=== PATIENT | male | born 1940 | race Caucasian/White ===

== ENCOUNTER 2018-01-18 21:45 | Inpatient (IN) | payer OTHER, MEDICARE ==
[~2018-01-18] VITALS: Ht 185.4 cm; Wt 84.9 kg
[~2018-01-18 21:45] MED LIST: AMIT50 PO; ASPI81CH PO; ATEN25 PO; DIGO.25; HYDACE5 PO; LANOXIN125 MCG PO; Norco 7.5-3251 EACH PO; TAMS.4ER PO; TERA2; WARF2.5 PO; XARELTO20 MG PO
[2018-01-18] MEDS ORDERED: OXYC5 PO (22:12)
[2018-01-18] MEDS ORDERED: ELIQUIS5 M1 PO (22:13)
[2018-01-18 22:46] LABS: BASOPHILS ABSOLUTE AUTO 0.02 K/mm3 (0.00-0.23); BASOPHILS PERCENT AUTO 0 % (0-2); EOSINOPHILS ABSOLUTE AUTO 0.04 K/mm3 (0.00-0.68); EOSINOPHILS PERCENT AUTO 0 % (0-6); Hematocrit 31.7 % (37.0-53.0); IMMATURE GRAN ABSOLUTE AUTO 0.06 K/mm3 (0.00-0.10); IMMATURE GRAN PERCENT AUTO 1 % (0-1); LYMPHOCYTES ABSOLUTE AUTO 0.68 K/mm3 (0.84-5.20); LYMPHOCYTES PERCENT AUTO 5 % (21-46); MONOCYTES ABSOLUTE AUTO 0.78 K/mm3 (0.16-1.47); MONOCYTES PERCENT AUTO 6 % (4-13); Mean Corpuscular HGB 29.3 pg (26.0-34.0); Mean Corpuscular HGB Conc 31.5 g/dL (31.5-36.5); Mean Corpuscular Volume 93 fL (80-100); NEUTROPHILS ABSOLUTE AUTO 11.32 K/mm3 (1.96-9.15); NEUTROPHILS PERCENT AUTO 88 % (41-73); Platelet Count 294 K/mm3 (150-400); RDW Coefficient Variation 17.7 % (11.7-14.2); RDW Standard Deviation 58.4 fL (35.1-46.3); Red Blood Cell Count 3.41 M/mm3 (4.30-5.90)
[2018-01-18 23:07] LABS: Troponin I <0.015 ng/mL (0.000-0.040)
[2018-01-18 23:08] LABS: Alanine Aminotransfer (ALT/SGP 15 U/L (12-78); Albumin, Blood 3.2 g/dL (3.4-5.0); Alk Phos 96 U/L (50-136); Anion Gap 10 mmol/L (6-16); Aspartate Aminotrans (AST/SGOT 15 U/L (12-37); Bilirubin, Total 1.4 mg/dL (0.1-1.0); Blood Urea Nitrogen 19 mg/dL (8-24); Bun/Creatinine Ratio 18.1 (12.0-20.0); CO2, Blood 23 mmol/L (21-32); Calcium, Blood 7.8 mg/dL (8.5-10.1); Chloride, Blood 107 mmol/L (98-108); Creatinine, Blood 1.05 mg/dL (0.60-1.20); Globulin, Blood 3.1 g/dL (2.2-4.0); Glomerular Filtration Rate >60 (60-); Glucose, Blood 133 mg/dL (70-99); Potassium, Blood 3.4 mmol/L (3.5-5.5); Sodium, Blood 140 mmol/L (136-145); Total Protein, Blood 6.3 g/dL (6.4-8.2)
[2018-01-18 23:17] LABS: Digoxin (Lanoxin) 0.94 ug/mL (0.80-2.00)
[2018-01-19 00:42] LABS: Source, Urine Clean Catch
[2018-01-19 00:45] LABS: Bilirubin, Urine Neg (Neg); Blood, Urine Neg (Neg); Glucose Qualitative, Urine Neg (Neg); Ketones, Urine Neg (Neg); Leukocyte Esterase, Urine Neg (Neg); Nitrite, Urine Neg (Neg); Protein, Urine Neg (Neg); Specific Gravity, Urine 1.015 (1.003-1.022); Urobilinogen, Urine NORM (Normal)
[2018-01-19 00:46] LABS: Appearance, Urine Clear (Clear); Color, Urine Yellow (P-Yellow)
[2018-01-19 06:54] LABS: Hematocrit 29.1 % (37.0-53.0); Hemoglobin 9.3 g/dL (13.5-17.5); Mean Corpuscular HGB 29.2 pg (26.0-34.0); Mean Corpuscular Volume 91 fL (80-100); Platelet Count 273 K/mm3 (150-400); RDW Coefficient Variation 17.5 % (11.7-14.2); RDW Standard Deviation 57.1 fL (35.1-46.3); Red Blood Cell Count 3.19 M/mm3 (4.30-5.90)
[2018-01-19 07:27] LABS: Alanine Aminotransfer (ALT/SGP 11 U/L (12-78); Albumin, Blood 2.8 g/dL (3.4-5.0); Alk Phos 86 U/L (50-136); Anion Gap 9 mmol/L (6-16); Aspartate Aminotrans (AST/SGOT 13 U/L (12-37); Bilirubin, Total 1.3 mg/dL (0.1-1.0); Blood Urea Nitrogen 17 mg/dL (8-24); CO2, Blood 25 mmol/L (21-32); Calcium, Blood 7.7 mg/dL (8.5-10.1); Chloride, Blood 107 mmol/L (98-108); Creatinine, Blood 1.06 mg/dL (0.60-1.20); Globulin, Blood 2.9 g/dL (2.2-4.0); Glomerular Filtration Rate >60 (60-); Glucose, Blood 102 mg/dL (70-99); Potassium, Blood 4.5 mmol/L (3.5-5.5); Sodium, Blood 141 mmol/L (136-145); Total Protein, Blood 5.7 g/dL (6.4-8.2); Troponin I 0.016 ng/mL (0.000-0.040)
[2018-01-19 10:44] LABS: Percent Saturation 12.7 % (20.0-50.0)
[2018-01-19 15:17] LABS: CPK Creatine Kinase 69 U/L (39-308); Troponin I <0.015 ng/mL (0.000-0.040)
[2018-01-20 06:32] LABS: BASOPHILS ABSOLUTE AUTO 0.02 K/mm3 (0.00-0.23); BASOPHILS PERCENT AUTO 0 % (0-2); EOSINOPHILS PERCENT AUTO 2 % (0-6); Hematocrit 31.6 % (37.0-53.0); IMMATURE GRAN ABSOLUTE AUTO 0.03 K/mm3 (0.00-0.10); IMMATURE GRAN PERCENT AUTO 0 % (0-1); LYMPHOCYTES ABSOLUTE AUTO 0.86 K/mm3 (0.84-5.20); LYMPHOCYTES PERCENT AUTO 13 % (21-46); MONOCYTES ABSOLUTE AUTO 0.56 K/mm3 (0.16-1.47); MONOCYTES PERCENT AUTO 8 % (4-13); Mean Corpuscular HGB 29.2 pg (26.0-34.0); Mean Corpuscular HGB Conc 31.6 g/dL (31.5-36.5); Mean Corpuscular Volume 92 fL (80-100); Mean Platelet Volume 8.8 fL (9.1-12.4); NEUTROPHILS ABSOLUTE AUTO 5.11 K/mm3 (1.96-9.15); NEUTROPHILS PERCENT AUTO 77 % (41-73); Platelet Count 238 K/mm3 (150-400); RDW Coefficient Variation 17.2 % (11.7-14.2); RDW Standard Deviation 57.1 fL (35.1-46.3); Red Blood Cell Count 3.42 M/mm3 (4.30-5.90); White Blood Cell Count 6.68 K/mm3 (4.00-11.30)
[2018-01-20 06:47] LABS: Bun/Creatinine Ratio 15.7 (12.0-20.0); Creatinine, Blood 1.27 mg/dL (0.60-1.20); Potassium, Blood 3.6 mmol/L (3.5-5.5)
[2018-01-20] MEDS ORDERED: CARV25 PO (14:12)
[2018-01-20] MEDS ORDERED: Micro-K10 MEQ PO (14:13)
[2018-01-20] MEDS ORDERED: Ferrous Sulfat325 M2 PO (14:15)
[2018-01-20] MEDS ORDERED: FURO40 PO (14:15)
== END 2018-01-20 15:41 | disposition home or self-care (01) | DRG 291 ==
LOC: ER 21:45 → PCU 01-19 00:44
PROVIDERS: Emergency Medicine; Internal Medicine
DX: I11.0 Hypertensive heart disease with heart failure (principal); J96.01 Acute respiratory failure with hypoxia; I50.31 Acute diastolic (congestive) heart failure; I48.2 Chronic atrial fibrillation; D50.9 Iron deficiency anemia, unspecified; I69.320 Aphasia following cerebral infarction; Z66 Do not resuscitate
CPT/HCPCS: 36415; 71046; 80048; 80053; 80162; 81003; 82550; 82728; 83540; 83550; 83880; 84484; 85025; 85027; 93005; 93010; 93306; 94762; 96374; 99285-25; J1940; J3480

== ENCOUNTER 2018-12-21 08:12 | Day surgery (SDC) | payer OTHER, MEDICARE ==
[~2018-12-21] VITALS: Ht 185.4 cm; Wt 75.7 kg
[~2018-12-21 08:12] MED LIST changes: +CARV25 PO; +ELIQUIS5 M1 PO; +FURO40 PO; +Ferrous Sulfat325 M2 PO; +Micro-K10 MEQ PO; +OXYC5 PO
[2018-12-21] MEDS ORDERED: ATECHL (08:56)
== END 2018-12-21 10:02 | disposition home or self-care (01) ==
LOC: ORSCSDS 08:12
PROVIDERS: Internal Medicine Gastroenterology
PROC: 0DBL8ZX Excision of Transverse Colon, Via Natural or Artificial Opening Endoscopic, Diagnostic (ICD-10-PCS; principal; 2018-12-21 09:30)
PROC: 0DBH8ZX Excision of Cecum, Via Natural or Artificial Opening Endoscopic, Diagnostic (ICD-10-PCS; principal; 2018-12-21 09:30)
DX: Z12.11 Encounter for screening for malignant neoplasm of colon (principal); Z86.010 Personal history of colon polyps; D12.0 Benign neoplasm of cecum; D12.3 Benign neoplasm of transverse colon; K64.8 Other hemorrhoids; I48.91 Unspecified atrial fibrillation; K21.0 Gastro-esophageal reflux disease with esophagitis; F43.10 Post-traumatic stress disorder, unspecified; Z79.01 Long term (current) use of anticoagulants; Z79.82 Long term (current) use of aspirin; Z79.899 Other long term (current) drug therapy
CPT/HCPCS: 88305; J2704; J7120

== ENCOUNTER 2022-09-26 09:01 | Day surgery (SDC) | payer OTHER ==
[~2022-09-26] VITALS: Ht 182.9 cm; Wt 82.0 kg
[~2022-09-26 09:01] MED LIST changes: +ATECHL; +ATEN50 PO; +ATOR20 PO
[2022-09-26] MEDS ORDERED: ELIQUIS5 M2 (09:38)
[2022-09-26] MEDS ORDERED: LISI5 (09:39)
[2022-09-26] MEDS ORDERED: AMIT50 (09:40)
--- NOTE | 2022-09-26 09:45 | NUR ---
09/26/22 0945 Antonia Oneil TETRACAINE TO RIGHT EYE AT 0938 PLEDGET TO RIGHT EYE ATE 0940 BY [facility].TMG
== END 2022-09-26 11:03 | disposition home or self-care (01) ==
LOC: ORSCSDS 09:01
PROVIDERS: Ophthalmology
PROC: 08RJ3JZ Replacement of Right Lens with Synthetic Substitute, Percutaneous Approach (ICD-10-PCS; principal; 2022-09-26 10:30)
DX: H25.13 Age-related nuclear cataract, bilateral (principal); I10 Essential (primary) hypertension; I48.91 Unspecified atrial fibrillation; Z79.01 Long term (current) use of anticoagulants; F41.8 Other specified anxiety disorders; Z79.899 Other long term (current) drug therapy; Z79.82 Long term (current) use of aspirin
CPT/HCPCS: J2001; J2250; J3010; J3301; J7040; V2632

== ENCOUNTER 2022-10-03 09:01 | Day surgery (SDC) | payer OTHER ==
[~2022-10-03] VITALS: Ht 182.9 cm; Wt 81.7 kg
[~2022-10-03 09:01] MED LIST changes: +AMIT50; +ELIQUIS5 M2; +LISI5
--- NOTE | 2022-10-03 09:56 | NUR ---
10/03/22 0956 Valentina Saravia AT 0985 PLETRET AT 0921
--- NOTE | 2022-10-03 11:30 | NUR ---
10/03/22 1130 Warren Perez PT REFUSES SOMETHING TO EAT OR DRINK.
== END 2022-10-03 11:31 | disposition home or self-care (01) ==
LOC: ORSCSDS 09:01
PROVIDERS: Ophthalmology
PROC: 08DK3ZZ Extraction of Left Lens, Percutaneous Approach (ICD-10-PCS; principal; 2022-10-03 10:30)
DX: H25.12 Age-related nuclear cataract, left eye (principal); Z96.1 Presence of intraocular lens; I10 Essential (primary) hypertension; F32.A Depression, unspecified; F41.9 Anxiety disorder, unspecified; Z86.73 Personal history of transient ischemic attack (TIA), and cerebral infarction without residual deficits; I48.91 Unspecified atrial fibrillation; Z79.82 Long term (current) use of aspirin; Z79.01 Long term (current) use of anticoagulants; Z79.899 Other long term (current) drug therapy
CPT/HCPCS: J2001; J3010; J3301; J7040; V2632